=== PATIENT | female | born 1930 | race African-American/Black ===

== ENCOUNTER 2017-02-18 00:41 | Emergency (ER) | payer OTHER ==
--- NOTE | ~2017-02-18 | CT71 ---
[facility] A Service of [facility] / [facility] RADIOLOGY TEXT RESULTS PATIENT: JARRELL LEZAMA LOCATION: [facility] : 32 UNIT #: [id number] AGE: [address]: Selma Engel MD SEX: F ORDER DR: [id number] [facility] [address] [facility]. [place], [place] [address] [id number] MR#: [id number] #: [id number] NAME: JARRELL LEZAMA : 1930 SEX: F STUDY DATE/TIME: 02/18/2017 3:00 UNIT: [facility] ROOM: STUDY DESCRIPTION: CT Head Wo Contrast Attending Physician: Selma Engel M.D. Ordering Physician: Prasad Lara M.D. Primary Care Physician: Primary Care Physician No MEDICAL IMAGING REPORT This report is preliminary unless electronic signature is present EXAM CT head, noncontrast, 02/18/17 HISTORY 86-year-old female in the ED complaining of 1-day history of headache. Confusion, dizziness. TECHNIQUE CT examination of the head without IV contrast. This CT exam was performed with one or more of the following radiation dose reduction techniques: Automatic exposure control, adjustment of mA and/or kV according to patient size, and iterative reconstruction. FINDINGS No acute intracranial abnormality is identified. Mild generalized cerebral atrophy with disproportionate enlargement of the ventricles. Advanced diffuse low-attenuation white matter changes are nonspecific but most likely related to chronic microvascular disease. No evidence of intracranial hemorrhage, mass, mass effect, acute cerebral edema or additional abnormality. No comparison studies here. Mild mucosal thickening throughout the visualized paranasal sinuses. IMPRESSION 1. No acute intracranial abnormality is identified. 2. Mild to moderate generalized atrophy with disproportionate enlargement of the ventricles. 3. Advanced diffuse, chronic appearing low-attenuation white matter changes. 4. Mild mucosal thickening throughout the visualized upper paranasal sinuses. [facility] A Service of [facility] / [facility] RADIOLOGY TEXT RESULTS PATIENT: JARRELL LEZAMA LOCATION: [facility] : 32 UNIT #: [id number] AGE: [address]: Selma Engel MD SEX: F ORDER DR: Dictated by... Librado Sandoval M.D. THIS IS AN ELECTRONICALLY VERIFIED REPORT Librado Sandoval M.D. at 02/18/2017 6:04 AM JUAN/manjinder TD: 02/18/2017 04:07 JOB #: [id number] MEDICAL IMAGING REPORT Page 1 of 1 COPY
--- NOTE | ~2017-02-18 | EKG ---
PATIENT: JARRELL LEZAMA UNIT #: [id number] Ventricular Rate: 71 BPM Atrial Rate: 71 BPM P-R Interval: 82 ms QRS Duration: 76 ms Q-T Interval: 364 ms QTC Calculation(Bezet): 395 ms Calculated R [place]: -29 degrees Calculated T [place]: 14 degrees Diagnosis Line: Sinus rhythm with short CT with Premature atrial Diagnosis Line: complexes Diagnosis Line: Nonspecific ST abnormality Diagnosis Line: Borderline ECG Diagnosis Line: No previous ECGs available Diagnosis Line: Confirmed by DOUG BALDERAS MD ([id number]) on 02/20/2017 Diagnosis Line: 4:17:14 PM INTERPRETING MD: SHERRIE PEREZ
[2017-02-18 01:55] LABS: POC - CKMB <1.0 ng/mL (0.0-7.9); POC - TROPONIN <0.05 ng/mL (<=0.05)
[2017-02-18 02:10] LABS: BASOPHIL# 0.1 X10e3 (0-0.3); BASOPHIL% 0.6 % (0-2.5); EOSINOPHIL# 0.3 X10e3 (0-0.7); EOSINOPHIL% 2.5 % (0.0-7.0); HEMATOCRIT 45.6 % (35.0-45.0); HEMOGLOBIN 14.3 gm/dL (12.0-16.0); LYMPHOCYTE# 1.2 X10e3 (1.0-3.5); LYMPHOCYTE% 10.1 % (17.0-45.0); MEAN CELL VOLUME 56.1 FL (83-96); MEAN CORPUSCULAR HEMOGLOBIN 17.6 PG (28-34); MEAN CORPUSCULAR HGB CONC 31.4 g/dL (30-36); MEAN PLATELET VOLUME 8.3 FL (6.5-11.5); MONOCYTE# 0.7 X10e3 (0-1.0); MONOCYTE% 5.9 % (3.0-12.0); NEUTROPHIL# 9.4 X10e3 (1.5-7.1); NEUTROPHIL% 80.9 % (40-75); PLATELET COUNT 584 X10e3 (140-420); RED CELL DISTRIBUTION WIDTH 19.2 % (11.0-15.5); WHITE BLOOD COUNT 11.7 X10e3 (4.0-10.5)
[2017-02-18 02:18] LABS: ALBUMIN SERUM 4.2 g/dL (3.5-5.0); BILIRUBIN, DIRECT 0.1 mg/dL (0.0-0.2); BILIRUBIN,INDIRECT 0.9 mg/dL (0.0-0.9); BUN/CREATININE RATIO 21.11; CALCIUM SERUM 9.5 mg/dL (8.4-10.2); CREATININE SERUM 0.9 mg/dL (0.6-1.4); GLOM FILT RATE Estimated 67.6 mL/min (>60); POTASSIUM 3.6 mmol/L (3.5-5.1); PROTEIN TOTAL SERUM 7.3 g/dL (6.0-8.3)
[2017-02-18 02:20] LABS: INR 1.1; PARTIAL THROMBOPLASTIN TIME 30.5 SECONDS (23.5-31.3)
[2017-02-18 02:26] LABS: RED BLOOD COUNT 8.13 X10e (3.90-5.30)
[2017-02-18 02:27] LABS: DIFF IND YES
[2017-02-18 02:30] LABS: ANISOCYTOSIS MOD; MICROCYTOSIS MOD; PLATELET ESTIMATE INCREASED (NORMAL)
[2017-02-18 03:41] LABS: POC - CKMB <1.0 ng/mL (0.0-7.9); POC - TROPONIN <0.05 ng/mL (<=0.05)
== END 2017-02-18 03:54 | disposition home or self-care (01) ==
LOC: CED 00:41
PROVIDERS: Emergency Medicine
DX: R51 Headache (principal); I10 Essential (primary) hypertension; E78.5 Hyperlipidemia, unspecified
CPT/HCPCS: 36415; 70450; 80048; 80076; 82553; 84484; 85025; 85610; 85730; 93005; 99284